=== PATIENT | female | born 1995 | race Caucasian/White ===

== ENCOUNTER → 2018-09-15 18:32 | Outpatient (CLI) | payer OTHER, SELFPAY ==
[2018-09-15 14:29] VITALS: BMI 23.6
[2018-09-15 20:45] LABS: Chlamydia Trachomatis by PCR Negative (Negative); Neisserai gonorrhoeae by PCR Negative (Negative); Probe Check PASS; Sample Adequacy Control PASS; Specimen Processing Control PASS
[2018-09-18 16:39] LABS: HPV Reflexed? NOT INDICATED
== END ==
PROVIDERS: Family Provider Family Medicine; PCP Family Medicine; Referring Provider Nurse Practitioner Women's Health; Visit Provider Nurse Practitioner Women's Health
DX: Z34.90 Encounter for supervision of normal pregnancy, unspecified, unspecified trimester (principal); Z12.4 Encounter for screening for malignant neoplasm of cervix
CPT/HCPCS: 87086; 87088; 87491; 87591; 87624; 88175; G0145

== ENCOUNTER → 2018-10-08 11:33 | Outpatient (CLI) | payer SELFPAY ==
[2018-09-15 14:29] VITALS: BMI 23.6
[2018-10-08 11:23] VITALS: BMI 23.6
--- NOTE | 2018-10-08 11:35 | US_ITS ---
STUDY: SECOND AND THIRD TRIMESTER OBSTETRICAL ULTRASOUND REASON FOR EXAM: Female, 23 years old. Routine survey. LMP: May 17, 2018. TECHNIQUE: Transabdominal TECHNICAL QUALITY: Adequate. PRIOR ULTRASOUND: None. FINDINGS: There is a single intrauterine fetus. The fetus is in a viable presentation. There is demonstrated cardiac activity with a heart rate of 134 bpm. There is a normal amniotic fluid volume. The largest amniotic fluid pocket measures 4.4 cm x 10.0 cm. The amniotic fluid index (ELOY) is within normal limits. The placenta is anterior in location and is not low lying. There are Grade 0 placental changes. The cervix measures 3.3 cm in length. The bilateral adnexal regions are normal. BIOMETRY: BPD: 5.29 cm: 22 weeks, 1 days HC: 19.03 cm: 21 weeks, 3 days AC: 15.2 cm: 20 weeks, 3 days FL: 3.13 cm: 19 weeks, 6 days CI: 85% FL/BPD: 59% FL/HC: FL/AC: 21% HC/AC: 1.25 age by current US: 21 weeks, 0 days. JARED by current US: February 18, 2019. Estimated weight: 344 grams, +/- 50 grams, 30 %. Age by LMP: 20 weeks, 4 days. JARED by LMP: February 21, 2019. ANATOMY: Gender: Male Cranium: Normal lateral ventricles. Normal choroid plexus. Normal cerebellum. Normal cisterna magna. Normal face, nose and lips. Chest: Normal 4-chamber heart. Abdomen/Pelvis: Normal diaphragm. Normal stomach. Normal abdominal wall. Normal cord insertion. Normal 3 vessel cord. Normal kidneys. Normal bladder. Spine: Limited anterior views of the spine although the entire spine looks within normal limits. Extremities: Normal bilateral upper extremities. Normal bilateral lower extremities. US/OB Anatomy Scan IMPRESSION: Single live intrauterine gestation with a mean gestational age of 21 weeks. Electronically Signed: Lane Colbert, at 15:46 EST , Service support ,
[2018-10-08 11:57] LABS: Absolute Lymphocyte Count 1.34 X10^3/ul (0.83-4.51); Absolute Neutrophil Count 8.4 X10^3/uL (2.0-7.7); Basophil# 0.02 X10^3/uL; Basophil% 0.2 % (0-1); Eosinophil# 0.05 X10^3/uL; Eosinophils% 0.5 % (0-5); Hematocrit 34.8 % (37-47); Hemoglobin 11.8 g/dl (12.0-15.0); Lymphocyte # 1.34 X10^3/ul (4.0); Lymphocyte % 12.8 % (19-41); Mean Corp Hgb Conc 33.9 g/gl (32-36); Mean Corpuscular Hgb 30.5 pg (27.0-32.0); Mean Corpuscular Volume 89.9 fL (81-99); Mean Platelet Vol. 9.9 fl (6.2-12.0); Monocyte# 0.61 X10^3/uL; Monocyte% 5.8 % (0-10); Neutrophil # 8.44 X10^3/uL (2.7-7.7); Neutrophil % 80.6 % (47-70); POSITIVE COUNT NO; POSITIVE DIFFERENTIAL NO; POSITIVE MORPHOLOGY NO; Platelet Count 212 K/mm3 (150-450); RBC Distribution Width CV 13.9 % (11.6-14.6); RBC Distribution Width SD 44.6 fl (35.1-43.9); Red Blood Count 3.87 M/mm3 (4.2-5.4); White Blood Count 10.5 K/mm3 (4.4-11.0)
[2018-10-08 13:27] LABS: Rubella IgG 446.5 IU/mL
== END ==
LOC: PAVLAB 11:39 → OPUS 11:47
PROVIDERS: Family Provider Family Medicine; PCP Family Medicine; Referring Provider Nurse Practitioner Women's Health; Visit Provider Nurse Practitioner Women's Health
DX: Z34.90 Encounter for supervision of normal pregnancy, unspecified, unspecified trimester (principal)
CPT/HCPCS: 36415; 76805; 85025; 86762; 86850; 86900

== ENCOUNTER → 2018-12-02 | Outpatient (CLI) | payer SELFPAY ==
[2018-12-02 10:56] VITALS: BMI 23.6
[2018-12-02 12:30] LABS: Glucose Challenge Gest 1H 50g 133 mg/dL (70-140)
[2018-12-02 12:35] LABS: Absolute Lymphocyte Count 1.27 X10^3/ul (0.83-4.51); Absolute Neutrophil Count 8.7 X10^3/uL (2.0-7.7); Basophil# 0.01 X10^3/uL; Basophil% 0.1 % (0-1); Eosinophil# 0.06 X10^3/uL; Eosinophils% 0.6 % (0-5); Hemoglobin 11.5 g/dl (12.0-15.0); Lymphocyte # 1.27 X10^3/ul (4.0); Lymphocyte % 11.7 % (19-41); Mean Corp Hgb Conc 33.8 g/gl (32-36); Mean Corpuscular Hgb 30.3 pg (27.0-32.0); Mean Corpuscular Volume 89.5 fL (81-99); Mean Platelet Vol. 10.1 fl (6.2-12.0); Monocyte# 0.71 X10^3/uL; Monocyte% 6.5 % (0-10); Neutrophil # 8.74 X10^3/uL (2.7-7.7); Neutrophil % 80.5 % (47-70); Platelet Count 195 K/mm3 (150-450); RBC Distribution Width CV 13.5 % (11.6-14.6); RBC Distribution Width SD 43.9 fl (35.1-43.9); White Blood Count 10.9 K/mm3 (4.4-11.0)
[2018-12-02 12:36] LABS: POSITIVE COUNT NO; POSITIVE DIFFERENTIAL NO; POSITIVE MORPHOLOGY NO
== END | disposition home or self-care (01) ==
PROVIDERS: Obstetrics & Gynecology; Family Provider Family Medicine; PCP Family Medicine; Visit Provider Nurse Practitioner Women's Health
DX: Z34.00 Encounter for supervision of normal first pregnancy, unspecified trimester (principal)
CPT/HCPCS: 36415; 82950; 85025

== ENCOUNTER → 2019-01-29 | Outpatient (CLI) | payer SELFPAY ==
[2019-01-29 14:05] VITALS: BMI 23.6
== END | disposition home or self-care (01) ==
PROVIDERS: Family Provider Family Medicine; PCP Family Medicine; Referring Provider Obstetrics & Gynecology; Visit Provider Obstetrics & Gynecology
DX: Z34.90 Encounter for supervision of normal pregnancy, unspecified, unspecified trimester (principal); Z3A.36 36 weeks gestation of pregnancy
CPT/HCPCS: 87081

== ENCOUNTER 2019-02-17 11:23 | Inpatient (IN) | payer SELFPAY ==
[2019-02-03 13:35] VITALS: BMI 23.6
[2019-02-17 11:42] VITALS: BMI 28.3
[2019-02-17] MEDS: Lactated Ringers 1,000 ML 50 ML IV (12:00)
[2019-02-17 12:16] LABS: Absolute Neutrophil Count 11.7 X10^3/uL (2.0-7.7); Basophil# 0.01 X10^3/uL; Basophil% 0.1 % (0-1); Eosinophil# 0.01 X10^3/uL; Eosinophils% 0.1 % (0-5); Hematocrit 39.3 % (37-47); Hemoglobin 13.6 g/dl (12.0-15.0); Lymphocyte % 8.1 % (19-41); Mean Corp Hgb Conc 34.6 g/gl (32-36); Mean Corpuscular Hgb 30.7 pg (27.0-32.0); Mean Corpuscular Volume 88.7 fL (81-99); Mean Platelet Vol. 10.6 fl (6.2-12.0); Monocyte# 0.79 X10^3/uL; Monocyte% 5.8 % (0-10); Neutrophil # 11.71 X10^3/uL (2.7-7.7); Neutrophil % 85.7 % (47-70); Platelet Count 156 K/mm3 (150-450); RBC Distribution Width CV 13.9 % (11.6-14.6); RBC Distribution Width SD 45.4 fl (35.1-43.9); Red Blood Count 4.43 M/mm3 (4.2-5.4); White Blood Count 13.7 K/mm3 (4.4-11.0)
[2019-02-17 12:19] LABS: POSITIVE COUNT NO; POSITIVE DIFFERENTIAL NO; POSITIVE MORPHOLOGY NO
[2019-02-17] MEDS: Oxytocin 30 units/NS 500 ml 30 UNITS/500 ML IV.SOLN 334 UNITS IV (13:01)
--- NOTE | 2019-02-17 13:23 | HP.PCM_ITS ---
- Problem List (1) Active labor at term Status: Acute (2) Status: Acute Qualifiers: Comment: carrier, genetic, and ntd screening declined. Anatomy US [facility] normal (3) Late care affecting in second trimester Status: Acute Comment: NOB at 17 wk (4) Supervision of normal first Status: Acute Qualifiers: Comment: PRR(declines RPR HepB) JARED 02/21/19 gender surprise Spouse Freddy History Date of Admission: 02/17/19 Final JARED: 02/21/19 Gestational age: 39 Weeks and 3 Days History of this : This is a 23 year-old, at 39 weeks gestational age presents IAL 5 cm some vb no lof good fm. Allergies No Known Allergies Allergy (Verified 02/17/19 11:39) Home Medications: Home Medications calcium carbonate-vitamin D3 600 mg (1,500 mg)-400 unit capsule cap PO cap 09/15/18 vitamin,calcium,ifwshafc-yqai-kiyou acid tablet 1 tab PO DAILY 11/06/18 evening primrose oil 500 mg capsule 500 mg PO TID 01/29/19 Smoking Status: Never smoker Alcohol: None Number of Fetus(es): 1 Heart Tracin moderate variability reactive no decelerations category I tracing [place]: regular History Past Pregnancies: Past Pregnancies Delivery Date Name GA/Weeks Outcome Route Weight Infant Gender Labor Length Anesthesia Delivery Location Provider FOB Labs: Mom's Labs & Results 02/17/19 02/17/19 12:00 12:00 WBC 13.7 H RBC 4.43 Hgb 13.6 Hct 39.3 MCV 88.7 MCH 30.7 MCHC 34.6 RDW 13.9 RDW Differential 45.4 H Plt Count 156 MPV 10.6 Immature Gran % (Auto) 0.200 Neut % (Auto) 85.7 H Lymph % (Auto) 8.1 L [place] % (Auto) 5.8 Eos % (Auto) 0.1 Baso % (Auto) 0.1 Absolute Neuts (auto) 11.7 H Absolute Lymphs (auto) 1.10 Total Counted Not Reportable Blood Type Pending Antibody Screen Pending Social History Smoking Status Never smoker Expected Infant Delivery Method: Spontaneous Vaginal Review of Systems Constitutional: Denies: Fever, Malaise Eyes: Denies: Blurred vision, Vision Change HEENT: Denies: Head Aches, Visual Changes Cardiovascular: Denies: Chest Pain, Palpitations Respiratory: Denies: Cough, Shortness of Breath, Wheezing Gastrointestinal: Denies: Abdominal Pain, Diarrhea, Nausea, Vomiting Genitourinary: Denies: Dysuria, Hematuria Musculoskeletal: Denies: Joint Pain, Muscle pain Skin: Denies: Lesions, Rash Neurological: Denies: Blurred vision, Focal weakness, Headaches Psychiatric: Denies: Anxiety, Depression Endocrine: Denies: Heat/ Cold Intolerance Hematologic/ Lymphatic: Denies: Easy Bruising, Easy Bleeding Physical Exam General: Alert, Cooperative, No apparent distress HEENT: Atraumatic, Normocephalic. Negative for: Thyromegaly, Lymphadenopathy Cardiovascular: Regular rate Lungs: Normal air movement Abdomen: Soft, Non Tender, Gravid Neurological: Deep Tendon Reflexes 2+/4 and Symmetrical, Neuro grossly intact. Negative for: Clonus PATIENT RESOURCE COORDINATOR: Normal external genitalia. Negative for: Vulvar lesions Estimated gestational size: Appropriate for gestational size Presentation: Cephalic Assessment/Plan All Active Problems (Last Reviewed 02/03/19 @ 13:35 by Lisseth Quintanilla) Active labor at term (Acute) (Acute) Late care affecting in second trimester (Acute) Supervision of normal first (Acute) This is a 23 year-old, , at 39 weeks gestational age presents IAL. IAL exp management term uncomplicated no epidural gbs neg
--- NOTE | 2019-02-17 13:25 | PCM.OPRPT ---
Problem List (1) Active labor at term Status: Acute (2) Status: Acute Qualifiers: Comment: carrier, genetic, and ntd screening declined. Anatomy US [facility] normal (3) Late care affecting in second trimester Status: Acute Comment: NOB at 17 wk (4) Supervision of normal first Status: Acute Qualifiers: Comment: PRR(declines RPR HepB) JARED 02/21/19 gender surprise Spouse Hayes Vaginal Delivery Maternal Presentation: Active Labor ial Amniotic Membrane Rupture Type: Artificial Amniotic Fluid Description: Clear Final JARED: 02/21/19 Gestational age: 39 Weeks and 3 Days Date of Procedure: 02/17/19 Pre-Operative Diagnosis: ial Post-Operative Diagnosis: same Surgery/ Procedure Performed: Spontaneous Vaginal Delivery Type of Anesthesia: Epidural Description of Procedure: Patient began pushing and delivered the head in the malik presentation. The head was delivered atraumatically and a loose nuchal cord x1 was reduced over the infant's head . The anterior and posterior shoulders delivered without complication followed by the rest of the infant and the infant was placed on the maternal abdomen. Delayed cord clamping was employed for approximately 60 seconds. Cord was clamped and cut and gentle traction was applied to the cord and the placenta delivered spontaneously immediately following it was noted to be intact with three-vessel cord. The perineum and vagina were inspected and a second degree laceration was repaired in the usual fashion with 3-0 Vicryl repeat after injecting with 1% lidocaine. EBL was 300cc . Patient and tolerated delivery well. Presentation: MALIK
[2019-02-17] MEDS: Oxytocin 30 units/NS 500 ml 30 UNITS/500 ML IV.SOLN 167 UNITS IV (13:32)
[2019-02-17] MEDS: Methylergonovine 0.2 MG/ML Ampul IM (13:54)
[2019-02-17 17:00] VITALS: BP 103/58; PULSE 86; RESP 18; TEMP 36.8
[2019-02-17 19:34] VITALS: BP 94/53; PULSE 93; RESP 18; TEMP 36.1; O2SAT 96
[2019-02-17 22:42] LABS: Hepatitis B Surface Antigen Non-Reactive (Nonreactive)
[2019-02-18] VITALS: BP 109/46; PULSE 92; RESP 16; TEMP 36.4; O2SAT 96
[2019-02-18 03:50] VITALS: BP 97/49; PULSE 94; RESP 18; TEMP 35.6; O2SAT 95
[2019-02-18] MEDS: Naproxen 250 MG Tablet 500 MG PO ×2 (03:59→13:10)
--- NOTE | 2019-02-18 08:16 | PN.OBGYN_ITS ---
Patient Problems: Active and Suspected Problems (Last Reviewed 02/03/19 @ 13:35 by Lisseth Quintanilla) Active labor at term (Acute) Subjective: doing well no complaints pain controlled no CP SOB N V ambulating well tolerating po lochia moderate, going well - Physical Exam General: Alert, Oriented x3 Vital Signs Temp Pulse Resp BP Pulse Ox 96.0 F L 94 18 97/49 L 95 02/18/19 03:50 02/18/19 03:50 02/18/19 03:50 02/18/19 03:50 02/18/19 03:50 Oxygen Delivery Method Room Air Weight: 160 lb Body Mass Index (BMI) 28.3 Intake and Output for Last 24 Hours 02/16/19 02/17/19 02/18/19 23:59 23:59 23:59 Intake Total 547 / 547 Output Total 1300 / 1300 Balance -753 / -753 Laboratory Tests Past 24 Hrs 02/17/19 02/17/19 02/17/19 12:00 12:00 21:38 WBC 13.7 H RBC 4.43 Hgb 13.6 Hct 39.3 MCV 88.7 MCH 30.7 MCHC 34.6 RDW 13.9 RDW Differential 45.4 H Plt Count 156 MPV 10.6 Immature Gran % (Auto) 0.200 Neut % (Auto) 85.7 H Lymph % (Auto) 8.1 L Davidson % (Auto) 5.8 Eos % (Auto) 0.1 Baso % (Auto) 0.1 Absolute Neuts (auto) 11.7 H Absolute Lymphs (auto) 1.10 Total Counted Not Reportable Hep Bs Antigen Non-Reactive Blood Type A POSITIVE Antibody Screen NEGATIVE Medical Necessity - Tobacco Use Smoking Status: Never smoker Assessment/Plan All Active Problems (Last Reviewed 02/03/19 @ 13:35 by Lisseth Quintanilla) Active labor at term (Acute) (Acute) Late care affecting in second trimester (Acute) Supervision of normal first (Acute) s/p PPD # 1 1. routine post delivery care 2. breast feeding- support given 3. rh positive 4. rubella immune
--- NOTE | 2019-02-18 08:18 | DCINST_ITS ---
Discharge Diet: No Restrictions Discharge Activity: Return to Normal Activity, May not drive while taking narcotic pain medications., May Shower May resume sexual activity in: 4-6 weeks Call your doctor if your incision/area has: Continuous Slow Oozing, Sudden Increased Bleeding, Increased Pain/ Swelling, Increased Redness, Foul Smelling Discharge Additional Instructions: If you experience any of the following, contact your healthcare provider. * Bleeding that soaks a pad every hour for 2 hours * Fever 100.4 or higher * Unrelieved incision or abdominal pain * Swelling, redness, discharge or bleeding from your incision or episiotomy site * Your incision begins to separate * Problems urinating (including inability to urinate or burning while urinating). * Visual changes * Severe headache * Flu-like symptoms * Pain or redness in one of both of your breasts * Pain, warmth, tenderness or swelling in your legs, especially the calf area * Frequent nausea and vomiting * Symptoms of depression or anxiety If you experience any of the following, call 911 or go to the nearest Emergency Room. * Chest pain * Problems breathing * Seizure activity * Partial or complete paralysis of a body part, slurred speech, weakness or drooping of the face, or a sudden inability to walk or hold your balance Allergies/Adverse Reactions: Allergies No Known Allergies Allergy (Verified 02/17/19 11:39) Medications to take at Discharge calcium carbonate-vitamin D3 600 mg (1,500 mg)-400 unit capsule cap PO cap 09/15/18 vitamin,calcium,tousuwzq-quhz-qohoj acid tablet 1 tab PO DAILY 11/06/18 evening primrose oil 500 mg capsule 500 mg PO TID 01/29/19 Please Follow Up With: Margarita Cervnates MD - [phone] When: Call to make an appointment with your doctor in 6 weeks. If you had elevated Blood pressure or 4th degree laceration you will need to be seen in 2 weeks. Primary Care Physician: Kd Bills III, MD [Primary Care Provider] - Test Results: Test results from this visit will be discussed in further detail at your follow-up appointment, if applicable.
--- NOTE | 2019-02-18 08:18 | PCM.DCVAG ---
Discharge Diet: No Restrictions Discharge Activity: Return to Normal Activity, May not drive while taking narcotic pain medications., May Shower May resume sexual activity in: 4-6 weeks Call your doctor if your incision/area has: Continuous Slow Oozing, Sudden Increased Bleeding, Increased Pain/ Swelling, Increased Redness, Foul Smelling Discharge Additional Instructions: If you experience any of the following, contact your healthcare provider. Bleeding that soaks a pad every hour for 2 hours Fever 100.4 or higher Unrelieved incision or abdominal pain Swelling, redness, discharge or bleeding from your incision or episiotomy site Your incision begins to separate Problems urinating (including inability to urinate or burning while urinating). Visual changes Severe headache Flu-like symptoms Pain or redness in one of both of your breasts Pain, warmth, tenderness or swelling in your legs, especially the calf area Frequent nausea and vomiting Symptoms of depression or anxiety If you experience any of the following, call 911 or go to the nearest Emergency Room. Chest pain Problems breathing Seizure activity Partial or complete paralysis of a body part, slurred speech, weakness or drooping of the face, or a sudden inability to walk or hold your balance Allergies/Adverse Reactions: Allergies No Known Allergies Allergy (Verified 02/17/19 11:39) Medications to take at Discharge calcium carbonate-vitamin D3 600 mg (1,500 mg)-400 unit capsule cap PO cap 09/15/18 vitamin,calcium,fhqfxlst-uuxo-mpbku acid tablet 1 tab PO DAILY 11/06/18 evening primrose oil 500 mg capsule 500 mg PO TID 01/29/19 Please Follow Up With: Margarita Cervantes MD - [phone] When: Call to make an appointment with your doctor in 6 weeks. If you had elevated Blood pressure or 4th degree laceration you will need to be seen in 2 weeks. Primary Care Physician: Kd Bills III, MD [Primary Care Provider] - Test Results: Test results from this visit will be discussed in further detail at your follow-up appointment, if applicable.
[2019-02-18 08:35] VITALS: BP 87/45; PULSE 83; RESP 16; TEMP 35.9; O2SAT 96
[2019-02-18 13:20] VITALS: BP 100/56; PULSE 80; RESP 16; TEMP 36.5; O2SAT 97
[2019-02-18 14:00] VITALS: BP 99/45; PULSE 75; RESP 16; TEMP 36.1; O2SAT 97
[2019-02-18 18:01] VITALS: BP 109/55; PULSE 68; RESP 16; TEMP 36.1; O2SAT 100
== END 2019-02-18 17:45 | disposition home or self-care (01) | DRG 807 ==
LOC: WPOUT 11:23
PROVIDERS: Student in an Organized Health Care Education/Training Program; Admitting Provider Obstetrics & Gynecology; Family Provider Family Medicine; PCP Family Medicine; Referring Provider Obstetrics & Gynecology; Visit Provider Obstetrics & Gynecology
DX: O69.81X0 Labor and delivery complicated by cord around neck, without compression, not applicable or unspecified (principal); Z37.0 Single live birth; O70.1 Second degree perineal laceration during delivery; Z3A.39 39 weeks gestation of pregnancy
CPT/HCPCS: 59025; 59050; 85025; 86850; 86900; 87340; 99218; J7120; G0378

== ENCOUNTER → 2019-12-24 12:12 | Outpatient (CLI) | payer SELFPAY ==
[2019-04-05 14:34] VITALS: BMI 28.3
--- NOTE | 2019-12-24 12:24 | US_ITS ---
STUDY: FIRST TRIMESTER OBSTETRICAL ULTRASOUND REASON FOR EXAM: Female, 24 years old DATING AND SIZE LMP: October 02, 2019. TECHNIQUE: Transvaginal TECHNICAL QUALITY: Adequate. PRIOR ULTRASOUND: None. FINDINGS: There is visualization of a single gestational sac in a normal intrauterine position. The mean sac diameter (MSD) measures 5.1 mm, indicating an estimated gestational age (EGA) of 11 weeks, 0 days. The gestational sac shape is slightly irregular in contour. There is a visualized yolk sac. The yolk sac measures 3 mm.. The placenta is non-visualized. There is visualization of an embryo with no cardiac activity, consistent with intrauterine demise. The crown-rump length (CRL) measures 9.5 mm, indicating an estimated gestational age (EGA) of 7 weeks, 0 days. The estimated gestation age (EGA) by LMP is 11 weeks, 6 days. The estimated date of delivery (JARED) by LMP is July 08, 2020. The estimated gestation age (EGA) by US is 9 weeks, 0 days. The estimated date of delivery (JARED) by US is July 28, 2020. The uterus measures 11.1 cm x 10.17 x 6.5 cm. There is no demonstrated uterine fibroid. The cervix is closed. There is a 1.4 cm x 1.1 cm x 0.9 cm subchorionic hematoma. The right ovary measures 2.5 cm x 2.3 cm x 1.5 cm. There is no right ovarian cyst. There is no visualized right adnexal mass or complex lesion. The left ovary is not visualized.. There is no fluid in the cul de sac. US/OB Limited (No Biometrics) IMPRESSION: demise. The referring practitioner was notified. Electronically Signed: Lane Colbert, at 13:59 EDT , Service support ,
== END ==
PROVIDERS: PCP Family Medicine
DX: Z34.90 Encounter for supervision of normal pregnancy, unspecified, unspecified trimester (principal)
CPT/HCPCS: 76815

== ENCOUNTER → 2020-02-01 09:21 | Outpatient (CLI) | payer SELFPAY ==
[2019-04-05 14:34] VITALS: BMI 28.3
[2020-02-01 09:57] LABS: hCG Titer Quant., Serum 3 mIU/mL (1-3)
== END ==
PROVIDERS: PCP Family Medicine; Referring Provider Obstetrics & Gynecology; Visit Provider Obstetrics & Gynecology
DX: O20.0 Threatened abortion (principal); Z3A.00 Weeks of gestation of pregnancy not specified
CPT/HCPCS: 36415; 84702

== ENCOUNTER → 2020-10-18 10:48 | Outpatient (CLI) | payer SELFPAY ==
[2020-07-28 11:17] VITALS: BMI 25.5
== END ==
PROVIDERS: PCP Family Medicine; Visit Provider Obstetrics & Gynecology
DX: Z00.00 Encounter for general adult medical examination without abnormal findings (principal)

== ENCOUNTER → 2023-03-03 | Outpatient (CLI) | payer OTHER, SELFPAY ==
[2023-03-03 11:33] LABS: Hematocrit 40.4 % (37-47); Hemoglobin 13.9 g/dL (12.0-15.0); Mean Corp Hgb Conc 34.4 g/dL (32-36); Mean Corpuscular Hgb 30.2 pg (27.0-32.0); Mean Corpuscular Volume 87.8 fL (81-99); Mean Platelet Vol. 9.9 fl (6.2-12.0); Platelet Count 255 K/mm3 (150-450); RBC Distribution Width CV 12.4 % (11.6-14.6); RBC Distribution Width SD 39.4 fl (35.1-43.9); White Blood Count 6.6 K/mm3 (4.4-11.0)
== END | disposition home or self-care (01) ==
LOC: WOBLAB 10:45
PROVIDERS: Visit Provider Student in an Organized Health Care Education/Training Program
DX: Z00.00 Encounter for general adult medical examination without abnormal findings (principal)
CPT/HCPCS: 36415; 85027

== ENCOUNTER 2023-03-06 11:06 | Day surgery (SDC) | payer SELFPAY, OTHER ==
[2023-03-06] VITALS (7 sets, daily range): BP systolic 88–94; BP diastolic 51–65; PULSE 70–82; RESP 16–18; TEMP 36.5–36.9; O2SAT 96–100; BMI 25.0
--- NOTE | 2023-03-06 | POC_PTH ---
PATIENT: REY MEDRANO LOC: [facility] [place] U#:[id number] AGE/SX: 28/F ROOM: RE03/06/[address]: Dr. Sepideh Berry, : 1995 BED: DIS: 03/06/2023 SPEC #: [id number] RECD: 03/06/23 15:46 STATUS: HAIR JUHI #: [id number] GILBERTO: 03/06/23 00:[address]: Sepideh Berry DEPT: SURGICAL PATHOLOGY RECD BY: Jh Amor ENTERED: 03/07/23 09:52 SP TYPE: PROD CONC OTHR DR: No Primary Care Phys Tissues: Product of conception, NOS Procedures: Surgery Specimen Level IV HEADER OPERATION: Suction dilation and curettage PRE-OP DIAGNOSIS: Missed TISSUE SUBMITTED: Contents of conception MICROSCOPIC DIAGNOSIS Endometrium, curettage: Chorionic villi, decidualized stroma and trophoblastic cells consistent with products of conception. AM:martine 03/10/2023 MICROSCOPIC DESCRIPTION Slides are reviewed. GROSS DESCRIPTION Received in fixative is one container labeled with the patient's name and designated contents of conception. The specimen consists of multiple fragments of hemorrhagic soft tissue that in aggregate measure 7.0 x 7.0 x 2.0 cm. No tissue is identified. One of the fragments appear to consists of placental tissue. [place]inder[place] tissue is submitted in three cassettes. / SJ:rg 03/07/2023 TC:5 CPT: 80689
--- NOTE | 2023-03-06 07:17 | HP.PCM.OB_ITS ---
History and Physical Date of Admission: 03/06/23 HPI: 28-year-old female with missed , plan for suction dilation and curettage. Patient had ultrasound 2 weeks ago that showed no heart rate and a crown-rump about 7 weeks per patient. Ultrasound on 03/03/2023 also demonstrated a crown-rump length measuring 12 mm with no heart rate, therefore diagnostic of miscarriage. Reports that she has started to have some bleeding and cramping. Denies headache or vision changes, chest pain or shortness of breath, nausea or vomiting, diarrhea constipation, fevers or chills. RETAIL ASSISTANT STORE MANAGER history: Medical history: Denies Surgical history: Denies Allergies: NKDA Medications: None Family history: No history of issues with anesthesia, blood clots or bleeding disorders Social history: Denies tobacco, alcohol, drug use Review of system: Negative otherwise stated above Physical exam: Vitals pending General: No acute distress HEENT: Normocephalic/atraumatic, PERRLA Cardiac: Regular rate and rhythm Respiratory: Clear to auscultation bilaterally Abdomen: Soft, nontender Extremities: No edema Neurologic: Cranial nerves II through XII grossly intact, no focal deficits Musculoskeletal: Moves all extremities equally Assessment/plan: 28-year-old female with missed , plan for suction dilation and curettage. Declined genetic/ANORA testing. All risk, benefits, alternatives were discussed with the patient. Risks include but are not limited to: Risk of bleeding to the point of transfusion, infection, injury to surrounding tissue including bowel/bladder potentially requiring prolonged Miller catheter use/major abdominal vessels, VTE, ICU admission. Patient aware and consented.
--- NOTE | 2023-03-06 11:50 | PCM.OPRPT ---
Report of Operation Date of Procedure: 03/06/23 Pre-Operative Diagnosis: Missed Post-Operative Diagnosis: Missed Surgery/Procedure Performed:: Suction dilation and curettage Description of Surgical Findings:: Normal-appearing external genitalia. Large amount of blood in the vagina. Cervix dilated 2 cm. Surgeon: Sepideh Berry double end tenon operator: None Type of Anesthesia: MAC Specimen's removed: Products of conception Estimated Blood Loss (mL): 50 cc Fluids Replaced: 800cc IVF Description of Procedure: Indication/risk/benefits:28-year-old female with missed , plan for suction dilation and curettage. Declined genetic/ANORA testing. All risk, benefits, alternatives were discussed with the patient. Risks include but are not limited to: Risk of bleeding to the point of transfusion, infection, injury to surrounding tissue including bowel/bladder potentially requiring prolonged Miller catheter use/major abdominal vessels, VTE, ICU admission. Patient aware and consented. Procedure: Patient taken to the operating room and MAC anesthesia induced. Patient placed in the dorsal lithotomy position and prepped and draped in the usual sterile fashion. Weighted speculum placed in the posterior vagina and Asencio retractor used to visualize the cervix. Anterior lip of the cervix grasped with Allis clamp. 11 mm suction curette passed through the cervical os and removed all products of conception in 360 degree manner from the uterine cavity. At the end of procedure bleeding was minimal. Weighted speculum removed. All needle, lap, sponge counts were correct. Urine output: None measured Complications None Admit VTE Documentation VTE Mechan Device Prophylaxis: SCD's
[2023-03-06] MEDS: Lactated Ringers 1,000 ML 15 ML IV (12:24)
--- NOTE | 2023-03-06 14:41 | DCINST_ITS ---
Discharge Instructions Diet Discharge Diet: No restrictions Activity Discharge Activity: Return to Normal Activity and May Shower May resume sexual activity in: 2 weeks Weight Bearing Status: Weight bearing as tolerated Lifting Restrictions: None Dressing / Incision Call your doctor if you observe: Fever of 101 or Higher, Change in Color, Inability to urinate, Using more than 1 pad per hour, Shortness of breath, Dizziness, Swelling in the ankles, Chest pain and Calf discomfort Follow Up Care Please Follow Up With: Sepideh Berry DO When: 1-2 week postoperative visit Test Results: Test results from this visit will be discussed in further detail at your follow- up appointment, if applicable. Discharge Plan Admission Primary Reason for Your Visit: Miscarriage Attending Provider: Sepideh Berry Primary Care Provider: Care Physician,Shantel Primary Discharge Orders/Prescriptions Prescriptions: No Action NK Disposition Disposition (needs filled in before D/C Order can be placed): Home, Self Care
[2023-03-06] MEDS: Methylergonovine 0.2 MG/ML Ampul IM (15:28)
== END 2023-03-06 16:49 | disposition home or self-care (01) ==
LOC: SDC 11:09 → AC 11:12
PROVIDERS: Referring Provider Student in an Organized Health Care Education/Training Program; Visit Provider Student in an Organized Health Care Education/Training Program
PROC: (CPT 59820; principal; 2023-03-06 13:30)
DX: O02.1 Missed abortion (principal); O26.21 Pregnancy care for patient with recurrent pregnancy loss, first trimester; Z3A.01 Less than 8 weeks gestation of pregnancy
CPT/HCPCS: 59820; 01965; 86850; 86900; 86901; 88305; J7120; J2405

== ENCOUNTER → 2023-03-21 | Outpatient (CLI) | payer OTHER, SELFPAY ==
[2023-03-21 13:26] LABS: Hemoglobin A1c 4.8 % (3.8-5.6)
[2023-03-21 14:04] LABS: Follicle Stimulating Hormone 2.4 mIU/mL; Luteinizing Hormone 3.4 mIU/mL; Thyroid Stim Hormone (TSH) 2.43 uIU/mL (0.358-3.74)
[2023-03-22 16:08] LABS: Anti-Cardiolipin Ab, IgG, Qn < 9 GPL U/mL (0-14); Anti-Cardiolipin Ab, IgM, Qn < 9 MPL U/mL (0-12); Dilute Prothrombin Time (dPT) 37.6 sec (0.0-47.6); Dilute Russell Viper Venom 39.5 sec (0.0-47.0); Interpretation Comment: (.); PTT-LA 33.5 sec (0.0-43.5); Thrombin Time 15.8 sec (0.0-23.0)
[2023-03-23 15:07] LABS: Beta-2-Microglobulin, S 1.5 mg/L (0.6-2.4)
== END | disposition home or self-care (01) ==
LOC: WOBLAB 12:07
PROVIDERS: Visit Provider Student in an Organized Health Care Education/Training Program
DX: N96 Recurrent pregnancy loss (principal)
CPT/HCPCS: 36415; 82232; 83001; 83002; 83036; 84443; 86147

== ENCOUNTER → 2023-10-02 | Outpatient (CLI) | payer OTHER, SELFPAY ==
[2023-10-07 17:49] LABS: HPV Reflexed? NOT INDICATED
== END | disposition home or self-care (01) ==
LOC: LABSPEC 14:47
PROVIDERS: Referring Provider Registered Nurse; Visit Provider Registered Nurse
DX: Z12.4 Encounter for screening for malignant neoplasm of cervix (principal)
CPT/HCPCS: 88175; G0145

== ENCOUNTER → 2024-06-17 | Outpatient (CLI) | payer OTHER, SELFPAY ==
[2024-06-18 09:10] LABS: PROGESTERONE 29.8 ng/mL (.)
== END | disposition home or self-care (01) ==
LOC: PAVLAB 09:57
PROVIDERS: Referring Provider Registered Nurse; Visit Provider Registered Nurse
DX: N96 Recurrent pregnancy loss (principal)
CPT/HCPCS: 36415; 84144

== ENCOUNTER → 2024-06-24 | Outpatient (CLI) | payer OTHER, SELFPAY ==
[2024-06-25 04:07] LABS: PROGESTERONE 22.2 ng/mL (.)
== END | disposition home or self-care (01) ==
LOC: PAVLAB 12:22
PROVIDERS: Referring Provider Registered Nurse; Visit Provider Registered Nurse
DX: N96 Recurrent pregnancy loss (principal)
CPT/HCPCS: 36415; 84144

== ENCOUNTER → 2024-06-28 | Outpatient (CLI) | payer OTHER, SELFPAY ==
[2024-06-28 10:28] LABS: hCG Titer Quant., Serum 18056 mIU/mL (1-3)
== END | disposition home or self-care (01) ==
PROVIDERS: Referring Provider Registered Nurse; Visit Provider Registered Nurse
DX: Z34.90 Encounter for supervision of normal pregnancy, unspecified, unspecified trimester (principal)
CPT/HCPCS: 36415; 84702

== ENCOUNTER → 2024-06-30 | Outpatient (CLI) | payer OTHER, SELFPAY ==
[2024-06-30 13:43] LABS: hCG Titer Quant., Serum 24588 mIU/mL (1-3)
[2024-07-02 04:08] LABS: PROGESTERONE 28.8 ng/mL (.)
== END | disposition home or self-care (01) ==
LOC: PAVLAB 12:42
PROVIDERS: Advanced Practice Midwife; Referring Provider Registered Nurse; Visit Provider Registered Nurse
DX: Z34.90 Encounter for supervision of normal pregnancy, unspecified, unspecified trimester (principal); N96 Recurrent pregnancy loss
CPT/HCPCS: 36415; 84144; 84702

== ENCOUNTER → 2024-07-01 | Outpatient (CLI) | payer OTHER, SELFPAY ==
--- NOTE | 2024-07-01 10:42 | US_ITS ---
STUDY: FIRST TRIMESTER OBSTETRICAL ULTRASOUND REASON FOR EXAM: Female, 29 years old abdominal and pelvic pain, positive test LMP: 05/18/2024 TECHNIQUE: Transvaginal TECHNICAL QUALITY: Adequate. PRIOR ULTRASOUND: None. FINDINGS: There is visualization of a single gestational sac in a normal intrauterine position. The mean sac diameter (MSD) measures 1.7 cm, indicating an estimated gestational age (EGA) of 6 weeks, 4 days. The gestational sac shape is within normal limits. There is a visualized yolk sac. The yolk sac measures 0.3 cm. The placenta is non-visualized. There is visualization of a live embryo. The crown-rump length (CRL) measures 0.7 cm, indicating an estimated gestational age (EGA) of 6 weeks, 5 days. There is demonstrated cardiac activity with a heart rate of 121 bpm. The estimated gestation age (EGA) by LMP is 6 weeks, 2 days. The estimated date of delivery (JARED) by LMP is 02/22/2025. The estimated gestation age (EGA) by US is 6 weeks, 2 days. The estimated date of delivery (JARED) by US is 02/19/2025. The uterus measures 9.1 x 8.2 x 6.3 cm. There is no demonstrated uterine fibroid. The cervix is closed. The right ovary measures 3.2 x 2.5 x 2.2 cm. There is no right ovarian cyst. There is no visualized right adnexal mass or complex lesion. The left ovary measures 3.0 x 1.9 x 1.5 cm. There is no left ovarian cyst. There is no visualized left adnexal mass or complex lesion. There is no fluid in the cul de sac. US/Transvaginal w/Preg US IMPRESSION: Single live intrauterine at 6 weeks 5 days by ultrasound with JARED of 02/19/2025. Heart rate at 121 bpm. No suspicious sonographic findings Electronically Signed: Wallace Yousif MD at 12:17 EST ,
== END | disposition home or self-care (01) ==
LOC: US 10:41
PROVIDERS: Referring Provider Registered Nurse; Visit Provider Registered Nurse
DX: Z34.90 Encounter for supervision of normal pregnancy, unspecified, unspecified trimester (principal)
CPT/HCPCS: 76817

== ENCOUNTER → 2024-07-07 | Outpatient (CLI) | payer OTHER, SELFPAY ==
[2024-07-08 08:12] LABS: PROGESTERONE 26.4 ng/mL (.)
== END | disposition home or self-care (01) ==
LOC: BWCLAB 10-28 15:56
PROVIDERS: Referring Provider Advanced Practice Midwife; Visit Provider Advanced Practice Midwife
DX: Z34.90 Encounter for supervision of normal pregnancy, unspecified, unspecified trimester (principal)
CPT/HCPCS: 36415; 84144

== ENCOUNTER → 2024-07-12 | Outpatient (CLI) | payer OTHER, SELFPAY ==
[2024-07-12 15:26] LABS: hCG Titer Quant., Serum 78277 mIU/mL (1-3)
== END | disposition home or self-care (01) ==
LOC: BWCLAB 14:38
PROVIDERS: Referring Provider Nurse Practitioner Women's Health; Visit Provider Nurse Practitioner Women's Health
DX: O20.9 Hemorrhage in early pregnancy, unspecified (principal); Z3A.00 Weeks of gestation of pregnancy not specified
CPT/HCPCS: 36415; 84702

== ENCOUNTER → 2024-07-13 | Outpatient (CLI) | payer OTHER, SELFPAY ==
--- NOTE | 2024-07-13 13:27 | US_ITS ---
STUDY: FIRST TRIMESTER OBSTETRICAL ULTRASOUND REASON FOR EXAM: Female, 29 years old abnormal bleeding LMP: 05/15/2024 TECHNIQUE: Transabdominal and Transvaginal TECHNICAL QUALITY: Adequate. PRIOR ULTRASOUND: 07/01/2024 FINDINGS: There is visualization of a single gestational sac in a normal intrauterine position. The mean sac diameter (MSD) measures 2.97 cm, indicating an estimated gestational age (EGA) of 8 weeks, 1 days. The gestational sac shape is within normal limits. There is a visualized yolk sac. The yolk sac measures 0.43 cm. The placenta is non-visualized. There is visualization of an embryo with no cardiac activity, consistent with intrauterine demise. The uterus measures 12.1 x 9.5 x 5.9 cm. There is no demonstrated uterine fibroid. The cervix is closed. The right ovary measures 3.3 x 3.1 x 3.1 cm. There is no right ovarian cyst. There is no visualized right adnexal mass or complex lesion. The left ovary measures 2.8 x 1.5 x 1.9 cm. There is no left ovarian cyst. There is no visualized left adnexal mass or complex lesion. There is no fluid in the cul de sac. US/Transvaginal w/Preg US IMPRESSION: There is an intrauterine gestational sac containing a pole, and yolk sac. [place]-rump length of the pole measures 1.2 cm corresponding to an ultrasound dating of 7 weeks 3 days and heart rate could be present. However, there are no heart tones and findings are consistent with demise. Follow-up ultrasound recommended to assure there are no retained POC. No suspicious adnexal mass or free fluid Electronically Signed: Wallace Yousif MD at 14:54 EST ,
== END | disposition home or self-care (01) ==
LOC: US 13:27
PROVIDERS: Referring Provider Nurse Practitioner Women's Health; Visit Provider Nurse Practitioner Women's Health
DX: O26.859 Spotting complicating pregnancy, unspecified trimester (principal); Z3A.00 Weeks of gestation of pregnancy not specified
CPT/HCPCS: 76817

== ENCOUNTER 2024-07-15 08:50 | Day surgery (SDC) | payer SELFPAY, OTHER ==
[2024-07-15] VITALS (8 sets, daily range): BP systolic 86–101; BP diastolic 53–68; PULSE 70–78; RESP 16; TEMP 36.1–36.5; O2SAT 98–100; BMI 27.6
[2024-07-15] MEDS: Doxycycline 100 MG CAPSULE PO (09:50)
[2024-07-15 10:02] LABS: Hemoglobin 12.9 g/dL (12.0-15.0); Mean Corp Hgb Conc 34.9 g/dL (32-36); Mean Corpuscular Hgb 29.7 pg (27.0-32.0); Mean Corpuscular Volume 85.1 fL (81-99); Mean Platelet Vol. 10.1 fl (6.2-12.0); Platelet Count 224 K/mm3 (150-450); RBC Distribution Width CV 11.9 % (11.6-14.6); RBC Distribution Width SD 36.8 fl (35.1-43.9); Red Blood Count 4.35 M/mm3 (4.2-5.4)
--- NOTE | 2024-07-15 10:07 | PCM.PRE.AN2 ---
ASA Classification* ASA Classification ASA Classification: 2 Assessment & Plan Anesthesia* Anesthesia Assessment Anesthesia Assessment: Discussed sedation and/or anesthesia options, risks, benefits, and alternatives with patient/parents/legal guardian/POA. Questions invited. The patient/parents/legal guardian/POA seems to understand and agrees to proceed with anesthesia plan. Reviewed the physical assessment, medical history, allergy history and patient home medications list prior to surgery/procedure/anesthetic and documented any changes. Performed airway and anesthesia risk assessments. Anesthesia Type Anesthesia Type: MAC History Source History Obtained from:: Patient and Chart Anesthesia Focused Assessment* Temperature: 97.7 F Pulse Rate: 78 Blood Pressure: 96/56 Respiratory Rate: 16 Pulse Ox: 100 Oxygen Delivery Method: Room Air Airway Assessment Mouth opens: >3 cm Mallampati Score: III Teeth Condition: Missing (Patient has several missing teeth. Rest are tight.) Neck Range of motion (ROM): Limited ROM (Slight decrease in extension.) Focused Labs Anesthesia Preop lab: CBC WBC 6.0 K/mm3 (4.4-11.0) 07/15/24 09:40 RBC 4.35 M/mm3 (4.2-5.4) 07/15/24 09:40 Hgb 12.9 g/dL (12.0-15.0) 07/15/24 09:40 Hct 37.0 % (37-47) 07/15/24 09:40 Plt Count 224 K/mm3 (150-450) 07/15/24 09:40 CHEMISTRY TSH 2.43 uIU/mL (0.358-3.74) 03/21/23 12:08 COAG HCG, Quant 77664 mIU/mL (1-3) H 07/12/24 14:39 Pre-Assessment Diagnosis/Proposed Procedure Planned Operative Procedure(s): Suction dilatation and curettage Anesthesia History Anesthesia History - child care nurse: Anesthesia History - child care nurse Hx Hospitalization No 07/10/23 13:32 Any Problems With Anesthesia No 07/10/23 13:32 Cholinesterase deficiency No 07/10/23 13:32 You/Your Family Experience No 07/10/23 13:32 fever (hyperthermia) with Relationship Recent Exposure to Contagious No 07/15/24 09:29 Disease Does patient have nerve No 07/10/23 13:32 stimulator Patient instructed to have device shut off --Does patient have Pacemaker No 07/15/24 09:29 or ICD? When Was Last Pacemaker Check QUESTION #4 FULL TEXT: You/Your Family Experience fever (hyperthermia) with Anesthesia Last Oral Intake Last Oral intake: Last Oral Intake NPO since 00:00 07/15/24 09:29 Meds taken in AM with sips of No 07/15/24 09:29 water? Meds patient instructed to take am of surgery PONV PONV - child care nurse: PONV - child care nurse Female HX of Motion Sickness HX of N/V After Surgery Non-Smoker Duration of Surgery greater than 60 minutes Number of Risk Factors PONV Score Height & Weight Height & Weight: Anesthesia: Height & Weight Height 5 ft 2 in 07/15/24 09:29 Weight: 68.4 kg 07/15/24 09:29 Body Mass Index (BMI) 27.6 07/15/24 09:29 Respiratory Assessment Respiratory Assessment - child care nurse: Respiratory Tract Infection Hx - child care nurse Hx Respiratory Tract Infection No 07/10/23 13:32 STOP Sleep Apnea STOP Sleep Apnea - child care nurse: STOP Sleep Apnea - child care nurse Hx Hypertension No 07/10/23 13:32 Hx Sleep Apnea No 07/10/23 13:32 CPAP BIPAP Do you snore loudly (louder than talking or can be heard Do you often feel tired/ fatigued/ sleepy during daytime? Has anyone observed you stop breathing during sleep? STOP Results QUESTION #5 FULL TEXT : Do you snore loudly (louder than talking or can be heard through closed doors)? Tobacco Use History Tobacco Use History - child care nurse: Tobacco Use History - child care nurse Tobacco Use Smoking Status Never smoker 07/01/24 09:27 Hx Tobacco Use No 07/10/23 13:32 Years Smoking Packs Smoked per Day Smoking Cessation Date was within the last 15 years Hx Smoking Cessation Date Hx Smoking Cessation Counseling Hematologic Medial History Hematologic Hx - child care nurse: Hematologic Medical Hx - discharge coordinator Hx of Blood Transfusion Hx of Transfusion in last 3 Months Date of Last Transfusion (if within last 3 months) Ever experience any problems with transfusion(s)? Specify any problems Hx of Preganancy in last 3 Months Nurse Filling Out Transfusion & Questions: Date: Time: Patient unable to answer at this time (ie. confused, unrespo /Reproduction History /Reproductive History - child care nurse: /Reproductive Hx- child care nurse Hx Now Gestational Age (in weeks): EDC: Hx Hx Para Hx Section SAB No 07/13/24 14:12 Active Medications Active Medications: Current Medications Generic Name Dose Route Start Last Admin Trade Name Freq PRN Reason Stop Dose Admin Doxycycline Monohydrate 100 mg 07/15/24 10:45 07/15/24 09:50 Doxycycline 100 Mg Capsule PO 100 mg PREOP ANGELITA Administration PFSH Medical History Miscarriage at 8 to 28 weeks gestation Home Medications ?Medication ?Instructions ?Recorded ?Last Taken ?Type Lactobacillus comb cap PO 07/01/24 Unknown History no.7-ALC-jqzcgohmvm 300 million cell-250 mg capsule (Probiotic and Acidophilus) multivitamin no.47-iron fum 27 cap PO 07/01/24 Unknown History mg-folate no.1 1 mg-dha 300 mg capsule (PNV-DHA) progesterone micronized 200 mg 200 mg PO BID 07/01/24 Unknown History capsule Allergy/AdvReac Type Severity Reaction Status Date / Time No Known Allergies Allergy Verified 07/15/24 09:28 Family History Grandfather Cancer Surgical History H/O dilation and curettage Social History adopted: No household members: family housing: house number of children: 2 current occupational status: unemployed current occupation: [employer] pets and animals: No leisure activities: reading history of recent travel: No sexually active: Yes Smoking Status: Never smoker alcohol intake: never substance use type: does not use well-balanced diet: daily or most days caffeine: Yes (occasionally) Type: coffee Number of servings: 1 eating out: rarely or never during the past year weight has: remained stable what type of physical activity do you participate in: none rk/zoroastrian: [facility] seatbelt use: sometimes do you feel safe at home: Yes additional social history: -Hayes- Woodworking Review of Systems (Anesthesia) ROS Narrative System reviewed and no additional complaints, except as documented.
--- NOTE | 2024-07-15 10:45 | POC_PTH ---
PATIENT: REY MEDRANO LOC: [facility] [place] U#:[id number] AGE/SX: 29/F ROOM: RE07/15/[address]: Dr. Suad Pemberton DO : 1995 BED: DIS: 07/15/2024 SPEC #: [id number] RECD: 07/15/24 11:36 STATUS: HAIR REYNAGA #: [id number] GILBERTO: 07/15/24 10:[address]: Suad Pemberton DEPT: SURGICAL PATHOLOGY RECD BY: Krystal Vega ENTERED: 07/15/24 12:15 SP TYPE: PROD CONC OTHR DR: No Primary Care Phys Tissues: Product of conception, NOS Procedures: Surgery Specimen Level IV HEADER OPERATION: D&C, suction, Anora testing PRE-OP DIAGNOSIS: Missed with demise before 20 completed weeks of gestation, history of multiple miscarriages, consanguinity TISSUE SUBMITTED: Products of conception - ANORA TESTING MICROSCOPIC DIAGNOSIS Endometrium, curettage: Chorionic villi, decidualized stroma and trophoblastic cells (products of conception). See comment. AM: 07/16/2024 COMMENT Portions of the tissue is submitted for Anora testing. The results from this study will be reported separately as an addendum. MICROSCOPIC DESCRIPTION Slides are reviewed. GROSS DESCRIPTION Received in fixative is one container labeled with the patient's name and designated Products of conception. The specimen consists of multiple irregular fragments of red-pham soft tissue measuring in aggregate 8.0 x 6.0 x 0.5cm. Drill Sharpener Operator portions are submitted for Anora testing. Drill Sharpener Operator sections are submitted in three cassettes. AM. 07/15/2024 TC:5 CPT:61683
--- NOTE | 2024-07-15 10:48 | PCM.HP.BLA ---
History and Physical Date of Admission: 07/15/24 Intake Vital Signs 07/12/2414:14 07/13/2414:10 07/13/2414:12 Height 5 ft 3 in 5 ft 3 in 5 ft 3 in Weight: 150 lb 4 oz BMI 26.6 BP 112/67 Intake Visit Reasons: US News Agent Required: No Is patient in pain?: No Allergies No Known Allergies Allergy (Verified 07/13/24 14:10) Medications ?Medication ?Instructions ?Recorded ?Confirmed ?Type Lactobacillus comb cap PO 07/01/24 07/13/24 History no.0-RQE-vyvblpetrm 300 million cell-250 mg capsule (Probiotic and Acidophilus) multivitamin no.47-iron fum 27 cap PO 07/01/24 07/13/24 History mg-folate no.1 1 mg-dha 300 mg capsule (PNV-DHA) progesterone micronized 200 mg 200 mg PO BID 07/01/24 07/13/24 History capsule Last Menstrual Period: 05/18/24 Zika: Zika virus screening: Negative : No PFSH PFSH Medical History Miscarriage at 8 to 28 weeks gestation Surgical History H/O dilation and curettage Family History Grandfather Cancer Social History adopted: No household members: family housing: house number of children: 2 current occupational status: unemployed current occupation: [employer] pets and animals: No leisure activities: reading history of recent travel: No sexually active: Yes Smoking Status: Never smoker alcohol intake: never substance use type: does not use well-balanced diet: daily or most days caffeine: Yes (occasionally) Type: coffee Number of servings: 1 eating out: rarely or never during the past year weight has: remained stable what type of physical activity do you participate in: none rk/yazdanism: Mormonism seatbelt use: sometimes do you feel safe at home: Yes 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 Date Name GA/Weeks Outcome Route Bth Weight Gen Labor Lgth Anesthesia Del Locatn Provider FOB 02/17/19 [place] 39 live - full term 6# 12oz Male none [facility] 09/07/21 Arturo 40 live - full term 9# Male none [facility] Care in [facility] [place] Details: REY MEDRANO is a 29 year old who presents for discussion about ultrasound today that showed no heart tones. She is not cramping or bleeding and would like to proceed with a D&C and anora testing. OB Visit JARED Calculator Estimated Delivery Date Method Current WG Current Estimate 02/22/25 LMP (Certain) 8w 2d Other Estimates 02/19/25 Ultrasound #1 8w 5d ACOG First Trimester First Trimester: Desire for , Alcohol, Tobacco Cessation, Illicit/Recreational Drug/Substance Use, Intimate Partner Violence, Barriers to care, Unstable Housing, Communication Barriers, Environmental/Work Hazards, Anticipated Course of Care, Toxoplasmosis Precations, Use of Any medications, Sexual activity, Exercise, Dental Care, Sauna/Hot tub use, Seat Belt use, Childbirth classes/Hospital facilities, Travel, Indications for Ultrasound and Screening for Aneuploidy; Discussed ROS Const All systems reviewed & are unremarkable except as noted in H Resp Reports system reviewed and no additional complaints, except as documented and Denies cough GI Reports as per HPI Psych Reports system reviewed and no additional complaints, except as documented Exam Const General: cooperative, healthy appearing, comfortable and no acute distress Resp Effort & Inspection: normal respiratory effort Skin General: no rashes or lesions noted Psych Appearance: grossly normal Speech and Movement: speech and movement normal Coding Level of Care Code Off vis,est,level 4 Diagnoses Missed with demise before 20 completed weeks of gestation O02.1 History of multiple miscarriages N96 Consanguinity Z84.3 Assessment and Plan Assessment and Plan (1) Missed with demise before 20 completed weeks of gestation: Status: Acute (2) History of multiple miscarriages: Status: Acute (3) Consanguinity: Status: Acute Comment: second cousins, recommended speaking to genetic counselor/obtaining genetic screenings. may be obtaining through [place] Orders: Orders CBC-Complete Blood Cnt No Diff Today O02.1 - Missed Type & Screen Today O02.1 - Missed Plan After discussing the patient's diagnosis and treatment plan options, patient wishes to proceed with surgical management. I have discussed with the patient the risks, benefits, and alternatives of the procedure which include but are not limited to risks of anesthesia, bleeding, infection, possible damage to bowel, bladder, or surrounding vasculature which could lead to additional surgery to evaluate any complications. Patient agrees to procedure and wishes to proceed. ACOG/uptodate references given for additional information regarding procedure. plan for hysteroscopy dilation and curettage with anora testing
--- NOTE | 2024-07-15 10:48 | PCM.DC ---
Discharge Instructions Diet Discharge Diet: No restrictions DC O2, CPAP, BIPAP needs Additional Home O2 Discharge instructions: No Dressing / Incision Discharge Activity: Return to Normal Activity, May Shower and May Take a Tub Bath (after 1 week) May resume sexual activity in: 1-2 weeks Weight Bearing Status: Weight bearing as tolerated Lifting Restrictions: none Dressing / Incision Call your doctor if you observe: Fever of 101 or Higher, Using more than 1 pad per hour, Shortness of breath and Uncontrolled pain Follow Up Care Please Follow Up With: Suad Pemberton DO When: Call [phone] to schedule appointment. Test Results: Test results from this visit will be discussed in further detail at your follow-up appointment, if applicable. Discharge Plan Admission Primary Reason for Your Visit: dilation and curettage Attending Provider: Suad Pemberton Primary Care Provider: Shantel Suazo Primary Instructions Print Language: Japanese Discharge Orders/Prescriptions Prescriptions: New ibuprofen 800 mg tablet 800 mg PO Q8H PRN (Reason: pain) Qty: 30 0RF Continued PNV-DHA 27 mg iron-1 mg -300 mg capsule PO Probiotic and Acidophilus 300-250 million cell-mg capsule PO Discontinued progesterone micronized 200 mg capsule 200 mg PO BID Rx Instructions: off 7 days; repeat cycle Other Ambulatory Orders: CBC-Complete Blood Cnt No Diff (Routine) Timeframe: 20240715 Facility: [facility] - Location: Laboratory Ordered By: Dr. Suad Pemberton Type & Screen - PAT ONLY (Routine) Timeframe: 20240715 Facility: [facility] - Location: Laboratory Ordered By: Dr. Suad Pemberton Referrals / Follow Up: Care Physician,Shantel Primary [Primary Care Provider] - Disposition Disposition (needs filled in before D/C Order can be placed): Home, Self Care
[2024-07-15] MEDS: Lidocaine 1% (20 ml mdv) 20 ML Vial (11:12)
--- NOTE | 2024-07-15 11:14 | PCM.OPRPT ---
Problems Associated Problem List Diagnoses (1) Missed with demise before 20 completed weeks of gestation: (2) Consanguinity: (3) History of multiple miscarriages: Operative Report (Standard) Operative Information Surgery/Procedure Performed: suction dilation and curettage Surgeon: Suad Pemberton Date of Procedure: 07/15/24 Procedure Start Time: 10:49 Procedure Stop Time: 11:18 Pre-Operative Diagnosis: missed at 7 weeks gestation Post-Operative Diagnosis: missed at 7 weeks gestation Select all DRAINS/GRAFTS/IMPLANTS that apply: None Type of Anesthesia: Local and MAC Estimated Blood Loss: 50cc Specimen collected: Yes Description of specimen(s) removed: products of conception Description of surgery: Patient was taken to the operating room and placed under MAC local anesthesia. She was prepped and draped in the normal sterile fashion the dorsal lithotomy position. Bladder was drained of clear urine and anterior lip of the cervix was grasped and the uterus sounded to 13cm. Cervix was progressively dilated to allow passage of a 7 suction curette. Progressive passes were made removing the retained products of conception without complication. Sharp curettage confirmed complete removal of the retained products. All instruments were removed from the vagina and excellent hemostasis was noted and the patient was taken to recovery in stable condition. Surgical Findings: normal vagina and cervix. mild to moderate products of conception Track Subway Repair Supervisor zipper cutter: No Complications Complications: No Admit VTE Documentation VTE Present on Admission: Yes VTE Mechan Device Prophylaxis: SCD's VTE Pharm Prophylaxis ordered?: No Multi Select Codes Urinary/Genital Urinary/Genital CPT Codes: 52410 Surg Trtmt missed Ab 1TM
--- NOTE | 2024-07-15 11:15 | POSTOPAN2_ITS ---
Anesthesia Postop Eval I Sum Postop Eval Completion status Anesthesia document: Postop Eval 1 completed: Yes Anesthesia Postop Eval I Summary Anesthesia Postop Eval I Summary: Anesthesia Postop Eval I: Assessment Summary Airway patent Yes 07/15/24 11:15 GEAR LAPPING MACHINE OPERATOR.MDOT Spontaneous unlabored Yes 07/15/24 11:15 GEAR LAPPING MACHINE OPERATOR.MDOT respirations Mental status Awake,Calm 07/15/24 11:15 GEAR LAPPING MACHINE OPERATOR.MDOT nausea No 07/15/24 11:15 GEAR LAPPING MACHINE OPERATOR.MDOT Vomiting No 07/15/24 11:15 GEAR LAPPING MACHINE OPERATOR.MDOT Anesthesia Postop Eval I: Fluid Summary Crystalloid volume administer 40 07/15/24 11:15 GEAR LAPPING MACHINE OPERATOR.MDOT (ml) Colloids volume administered ( ml) Blood Product volume administered (ml) Total IV fluid infused 40 07/15/24 11:15 GEAR LAPPING MACHINE OPERATOR.MDOT Anesthesia Postop Eval I: Summary Notes Anesthesia Complication No 07/15/24 11:15 GEAR LAPPING MACHINE OPERATOR.MDOT Anesthesia Complication Comment: Post-operative progress note Anesthesia: Postop Eval II Evaluation Mental status: Awake and Calm Pain Level: 0 nausea: No Vomiting: No Complications Anesthesia Complication: No
--- NOTE | 2024-07-15 11:15 | PCM.POST.ANE ---
Anesthesia: Postop Eval I Current Vital Signs Temperature: 97 F Pulse Rate: 70 Blood Pressure: 86/53 Respiratory Rate: 16 Pulse Ox: 98 Oxygen Delivery Method: Room Air Assessment Airway patent: Yes Spontaneous unlabored respirations: Yes Mental status: Awake and Calm nausea: No Vomiting: No Anesthesia Complication: No Fluid Hydration Crystalloid volume administer (ml): 40 Total IV fluid infused: 40 Progress Note Anesthesia document: Postop Eval 1 completed: Yes
--- NOTE | 2024-07-15 11:15 | PCM.POSTANE2 ---
Anesthesia Postop Eval I Sum Postop Eval Completion status Anesthesia document: Postop Eval 1 completed: Yes Anesthesia Postop Eval I Summary Anesthesia Postop Eval I Summary: Anesthesia Postop Eval I: Assessment Summary Airway patent Yes 07/15/24 11:15 ASSOCIATE MEDIA DIRECTOR.MDOT Spontaneous unlabored Yes 07/15/24 11:15 ASSOCIATE MEDIA DIRECTOR.MDOT respirations Mental status Awake,Calm 07/15/24 11:15 ASSOCIATE MEDIA DIRECTOR.MDOT nausea No 07/15/24 11:15 ASSOCIATE MEDIA DIRECTOR.MDOT Vomiting No 07/15/24 11:15 ASSOCIATE MEDIA DIRECTOR.MDOT Anesthesia Postop Eval I: Fluid Summary Crystalloid volume administer 40 07/15/24 11:15 ASSOCIATE MEDIA DIRECTOR.MDOT (ml) Colloids volume administered ( ml) Blood Product volume administered (ml) Total IV fluid infused 40 07/15/24 11:15 ASSOCIATE MEDIA DIRECTOR.MDOT Anesthesia Postop Eval I: Summary Notes Anesthesia Complication No 07/15/24 11:15 ASSOCIATE MEDIA DIRECTOR.MDOT Anesthesia Complication Comment: Post-operative progress note Anesthesia: Postop Eval II Evaluation Mental status: Awake and Calm Pain Level: 0 nausea: No Vomiting: No Complications Anesthesia Complication: No
[2024-07-15] MEDS: Methylergonovine 0.2 MG/ML Ampul IM (11:20)
[2024-07-16 09:54] LABS: Pathology Specimen OB SEE PATHOLOGY REPORT
== END 2024-07-15 12:38 | disposition home or self-care (01) ==
PROVIDERS: Visit Provider Obstetrics & Gynecology
PROC: (CPT 59820; principal; 2024-07-15 10:30)
DX: O02.1 Missed abortion (principal); N96 Recurrent pregnancy loss; Z84.3 Family history of consanguinity; O99.891 Other specified diseases and conditions complicating pregnancy
CPT/HCPCS: 59820; 01965; 85027; 86850; 86900; 86901; 88305; A4216; J2405

== ENCOUNTER → 2024-10-21 | Outpatient (CLI) | payer OTHER, SELFPAY ==
[2024-10-25 14:08] LABS: Anti-Cardiolipin Ab, IgG, Qn < 9 GPL U/mL (0-14); Anti-Cardiolipin Ab, IgM, Qn < 9 MPL U/mL (0-12); Beta-2-Glycoprotein I IgA <9 (0-25); Beta-2-Glycoprotein I IgG <9 (0-20); Beta-2-Glycoprotein I IgM <9 (0-32); Dilute Prothrombin Time (dPT) 40.8 sec (0.0-47.6); Dilute Russell Viper Venom 40.9 sec (0.0-47.0); Interpretation Comment: (.); PTT-LA 32.3 sec (0.0-43.5); Thrombin Time 17.7 sec (0.0-23.0)
== END | disposition home or self-care (01) ==
LOC: BWCLAB 16:14
PROVIDERS: Referring Provider Obstetrics & Gynecology; Visit Provider Obstetrics & Gynecology
DX: Z31.430 Encounter of female for testing for genetic disease carrier status for procreative management (principal)
CPT/HCPCS: 36415; 86146; 86147

== ENCOUNTER → 2025-01-27 | Outpatient (CLI) | payer OTHER, SELFPAY ==
[2025-01-29 03:07] LABS: Anti-Cardiolipin Ab, IgG, Qn < 9 GPL U/mL (0-14); Anti-Cardiolipin Ab, IgM, Qn < 9 MPL U/mL (0-12); Beta-2-Glycoprotein I IgA <9 (0-25); Beta-2-Glycoprotein I IgG <9 (0-20); Beta-2-Glycoprotein I IgM <9 (0-32); Dilute Prothrombin Time (dPT) 40.6 sec (0.0-47.6); Dilute Russell Viper Venom 40.5 sec (0.0-47.0); Interpretation Comment: (.); PTT-LA 32.1 sec (0.0-43.5); Thrombin Time 18.8 sec (0.0-23.0); dPT Confirm Ratio 0.97 Ratio (0.00-1.34)
== END | disposition home or self-care (01) ==
PROVIDERS: Referring Provider Obstetrics & Gynecology; Visit Provider Obstetrics & Gynecology
DX: N96 Recurrent pregnancy loss (principal)
CPT/HCPCS: 36415; 86146; 86147